=== PATIENT | female | born 1950 | race Hispanic/Latino ===

== ENCOUNTER 2019-12-23 13:43 | Inpatient (IN) | payer MEDICARE ==
[~2019-12-23] VITALS: Ht 157.5 cm; Wt 109.0 kg
[2019-12-23 14:29] LABS: BASOPHILS % (AUTO) 0.2 % (0.0-5.0); HEMATOCRIT 46.6 % (36-48); LYMPHOCYTES % (AUTO) 5.3 % (21.0-51.0); MEAN CORPUSCULAR HEMOGLOBIN 28.4 pg (27.0-33.0); MEAN CORPUSCULAR HGB CONC 33.9 g/dL (32.0-36.0); MEAN CORPUSCULAR VOLUME 83.7 fL (79-99); MONOCYTES % (AUTO) 4.8 % (3.0-13.0); NEUTROPHILS % (AUTO) 89.1 % (40.0-77.0); PLATELET COUNT (AUTO) 194 K/uL (130-400); RED BLOOD CELL COUNT(AUTO) 5.57 MIL/uL (4.00-5.50); RED CELL DISTRIBUTION WIDTH 14.4 % (11.0-15.5)
[2019-12-23] MEDS ORDERED: DEXAMETHASONE SOD PHOSPHATE 4 MG/ML 1ML VIAL ONE (14:39)
[2019-12-23] MEDS ORDERED: CEFTRIAXONE SODIUM 1 GM ONE (14:40)
[2019-12-23] MEDS ORDERED: AZITHROMYCIN 500MG+NS 250ML 250 ML IV ONE (14:40)
[2019-12-23] MEDS ORDERED: SODIUM CHLORIDE 0.9% 100 ML IV ONE (14:40)
[2019-12-23 14:48] LABS: CREATININE 1.1 mg/dL (0.5-1.5); POTASSIUM 4.5 mmol/L (3.5-5.1)
[2019-12-23 14:50] LABS: INR 0.98 (0.85-1.15); PARTIAL THROMBOPLASTIN TIME 26.8 SEC (26.3-35.5); PROTHROMBIN TIME 10.6 SEC (9.6-11.6)
[2019-12-23 14:55] LABS: ALBUMIN 3.1 g/dL (3.5-5.0); B-TYPE NATRIURETIC PEPTIDE 88 pg/mL (0-100); BILIRUBIN,TOTAL 0.5 mg/dL (0.2-1.0); TOTAL PROTEIN, SERUM 8.2 g/dL (6.0-8.3)
[2019-12-23] MEDS ORDERED: IOHEXOL 350 MG/ML 100ML INFUS..BTL IV ONE (15:40)
[2019-12-23] MEDS ORDERED: ERGOCALCIFEROL (VITAMIN D2) 50,000 UNIT CAPSULE PO ONE (16:15)
[2019-12-23] MEDS ORDERED: ACETAMINOPHEN 325 MG TAB PO PRN ×2 (16:15)
[2019-12-23] MEDS ORDERED: LACTULOSE 20 GM/30 ML UDCUP PO PRN (16:15)
[2019-12-23] MEDS ORDERED: ONDANSETRON HCL 4 MG/2 ML VIAL IV PRN (16:15)
[2019-12-23] MEDS ORDERED: HYDRALAZINE HCL 20 MG/ML VIAL IV PRN (16:15)
[2019-12-23] MEDS ORDERED: PHARMACY COMMUNICATION MISC SCH (16:30)
[2019-12-23] MEDS: FAMOTIDINE 20MG TAB 20 MG TAB PO SCH (21:00)
[2019-12-23] MEDS: DOXYCYCLINE HYCLATE 100 MG TABLET PO SCH (21:00)
[2019-12-23] MEDS: METHYLPREDNISOLONE SOD SUCC 40MG/ML 1ML IVP SCH (21:00)
[2019-12-24] MEDS: CEFTRIAXONE SODIUM 1 GM IVP SCH ×2 (04:15→15:22)
[2019-12-24] MEDS ORDERED: METHYLPREDNISOLONE SOD SUCC 40MG/ML 1ML ONE (05:35)
[2019-12-24] MEDS ORDERED: CEFTRIAXONE SODIUM 1 GM ONE (05:36)
[2019-12-24 06:28] LABS: BASOPHILS % (AUTO) 0.2 % (0.0-5.0); EOSINOPHILS % (AUTO) 0.1 % (0.0-8.0); HEMATOCRIT 47.1 % (36-48); LYMPHOCYTES % (AUTO) 7.5 % (21.0-51.0); MEAN CORPUSCULAR HEMOGLOBIN 28.1 pg (27.0-33.0); MEAN CORPUSCULAR HGB CONC 33.3 g/dL (32.0-36.0); MEAN CORPUSCULAR VOLUME 84.4 fL (79-99); NEUTROPHILS % (AUTO) 86.4 % (40.0-77.0); PLATELET COUNT (AUTO) 182 K/uL (130-400); RED BLOOD CELL COUNT(AUTO) 5.58 MIL/uL (4.00-5.50); RED CELL DISTRIBUTION WIDTH 14.5 % (11.0-15.5); WHITE BLOOD COUNT (AUTO) 14.4 K/uL (4.8-10.8)
[2019-12-24 06:29] VITALS: BP 168/78
[2019-12-24 07:07] LABS: ALBUMIN 2.8 g/dL (3.5-5.0); BILIRUBIN,TOTAL 0.4 mg/dL (0.2-1.0); CRP QUANTITATIVE 105.5 mg/L (0.00-9.0); POTASSIUM 4.2 mmol/L (3.5-5.1); TOTAL PROTEIN, SERUM 7.6 g/dL (6.0-8.3)
--- NOTE | 2019-12-24 07:22 | NUR ---
Patient received at 0600 the morning to room 202, accompanied by ED staff. Assessment and nursing data base completed. Patient is on 5L NC but stable, with no acute respiratory distress observed. Patient had $920 in galloway which security came in and took away to keep.
[2019-12-24 07:58] VITALS: BP 151/93
[2019-12-24] MEDS ORDERED: ENOXAPARIN SODIUM 40 MG/0.4 ML SYRINGE SQ SCH (09:00)
[2019-12-24] MEDS: DOXYCYCLINE HYCLATE 100 MG TABLET PO SCH ×2 (09:43→20:12)
[2019-12-24] MEDS: METHYLPREDNISOLONE SOD SUCC 40MG/ML 1ML IVP SCH (09:44)
[2019-12-24] MEDS: FAMOTIDINE 20MG TAB 20 MG TAB PO SCH ×2 (09:44→20:06)
[2019-12-24] MEDS: ASCORBIC ACID 500 MG TAB PO SCH (09:44)
[2019-12-24 10:01] LABS: HEMOGLOBIN A1C 6.2 % (4.0-6.0)
[2019-12-24] MEDS ORDERED: PHARMACY COMMUNICATION MISC SCH (11:00)
[2019-12-24 11:29] VITALS: BP 145/97
[2019-12-24] MEDS ORDERED: CARV25TA PO (11:56)
[2019-12-24] MEDS ORDERED: LEVO-170 PO (11:56)
[2019-12-24] MEDS ORDERED: NITR0.4T50 SL (11:56)
[2019-12-24] MEDS ORDERED: LISI-613 PO (11:56)
[2019-12-24] MEDS ORDERED: TRIH2TAB3 PO (11:56)
[2019-12-24] MEDS ORDERED: FURO-152 PO (11:56)
[2019-12-24] MEDS ORDERED: BACL10TA PO (11:56)
[2019-12-24] MEDS: ZINC SULFATE 220 CAPSULE PO SCH (12:20)
[2019-12-24] MEDS ORDERED: NITROGLYCERIN 0.4 MG SL TAB SL SCH (12:30)
[2019-12-24] MEDS: AMLODIPINE BESYLATE 5 MG TAB PO SCH (12:55)
[2019-12-24] MEDS: ENOXAPARIN SODIUM 60 MG/0.6 ML SQ SCH ×2 (12:55→20:06)
[2019-12-24] MEDS: LISINOPRIL 5 MG TABLET PO SCH ×2 (12:55→20:06)
[2019-12-24] MEDS ORDERED: REMDESIVIR (EUA) 520 200 MG in SODIUM CHLORIDE 0.9% 250 ML IV ONE (14:00)
[2019-12-24] MEDS ORDERED: COMPOUND IV REFRIGERATED 1 EACH IVSOLN MISC PRN (14:00)
[2019-12-24 15:28] VITALS: BP 174/97
--- NOTE | 2019-12-24 16:13 | NUR ---
INITIAL SW spoke to patient's son, London Eaton. Patient lives with her spouse. She has [facility] X 1-2 a week for PT. Patient also has [facility] with [facility] on MWF X 10 hrs a week. DME: [facility]. Patient needs help with ADL's and does not drive. PCP is Dr. Vinod Shaikh. Pharmacy is [facility] located on [address] in [place]. DCP is home. Addendum: 12/24/19 at 1614 by ROB ROJAS SS Amended: Links added.
[2019-12-24 19:40] VITALS: BP 157/89
[2019-12-24] MEDS: CARVEDILOL 12.5 MG TABLET PO SCH (20:12)
[2019-12-24 23:20] VITALS: BP 144/78
[2019-12-25] VITALS (7 sets, daily range): BP systolic 98–153; BP diastolic 44–86
[2019-12-25] MEDS: CEFTRIAXONE SODIUM 1 GM IVP SCH ×3 (04:01→20:24)
--- NOTE | 2019-12-25 05:59 | NUR ---
Patient slept on and off during this shift. POX between 92-97% in prone position on 100% NRB, 15% FI02. Pox drops in 80s when lying supine. Patient encouraged to maintain prone position. No acute respiratory distress at this time. Will continue to monitor. Following POC.
[2019-12-25] MEDS: PHARMACY COMMUNICATION MISC SCH (06:00)
[2019-12-25 06:01] LABS: BASOPHILS % (AUTO) 0.1 % (0.0-5.0); HEMATOCRIT 45.5 % (36-48); LYMPHOCYTES % (AUTO) 6.9 % (21.0-51.0); MEAN CORPUSCULAR HEMOGLOBIN 28.9 pg (27.0-33.0); MEAN CORPUSCULAR HGB CONC 33.8 g/dL (32.0-36.0); MEAN CORPUSCULAR VOLUME 85.4 fL (79-99); MONOCYTES % (AUTO) 4.6 % (3.0-13.0); NEUTROPHILS % (AUTO) 87.3 % (40.0-77.0); PLATELET COUNT (AUTO) 217 K/uL (130-400); RED BLOOD CELL COUNT(AUTO) 5.33 MIL/uL (4.00-5.50); RED CELL DISTRIBUTION WIDTH 14.5 % (11.0-15.5); WHITE BLOOD COUNT (AUTO) 13.8 K/uL (4.8-10.8)
[2019-12-25] MEDS: LEVOTHYROXINE 50 MCG TABLET PO SCH (06:11)
[2019-12-25 06:40] LABS: ALBUMIN 2.6 g/dL (3.5-5.0); BILIRUBIN,TOTAL 0.4 mg/dL (0.2-1.0); CREATININE 1.1 mg/dL (0.5-1.5); CRP QUANTITATIVE 131.2 mg/L (0.00-9.0); POTASSIUM 4.2 mmol/L (3.5-5.1); TOTAL PROTEIN, SERUM 7.5 g/dL (6.0-8.3)
--- NOTE | 2019-12-25 08:20 | NUR ---
ASSESSMENT ENCOUNTERED PT REPOSITIONING FROM PRONE TO LEFT SIDE, A&OX3, CALM COOPERATIVE WITH SOME C/O SOB. PT ON 70% NRB WITH SATS OF 88%, INCREASED TO 100% NRB WITH 6LNC HUMIDIFIED O2, O2 SATS 94%, PT STATES SHE FEELS BETTER WITH ADDITIONAL O2, PT IS ABLE TO TOLERATE FLUIDS AND MEDICATION WITH NO THROAT CLEARING OR COUGH BUT STATES THAT SHE HAS NOT HAD MUCH OF AN APPETITE. CALL LIGHT WITHIN REACH.
[2019-12-25] MEDS: CARVEDILOL 12.5 MG TABLET PO SCH ×3 (09:00→20:38)
[2019-12-25] MEDS: ENOXAPARIN SODIUM 60 MG/0.6 ML SQ SCH ×2 (10:12→20:18)
[2019-12-25] MEDS: LISINOPRIL 5 MG TABLET PO SCH ×2 (10:12→20:18)
[2019-12-25] MEDS: DOXYCYCLINE HYCLATE 100 MG TABLET PO SCH ×2 (10:12→20:17)
[2019-12-25] MEDS: AMLODIPINE BESYLATE 5 MG TAB PO SCH (10:12)
[2019-12-25] MEDS: ASCORBIC ACID 500 MG TAB PO SCH (10:12)
[2019-12-25] MEDS: FAMOTIDINE 20MG TAB 20 MG TAB PO SCH ×2 (10:12→20:17)
[2019-12-25] MEDS: ZINC SULFATE 220 CAPSULE PO SCH (10:13)
[2019-12-25] MEDS: DEXAMETHASONE SOD PHOSPHATE 4 MG/ML 1ML VIAL IVP SCH (10:13)
--- NOTE | 2019-12-25 11:01 | NUR ---
CHART CHECK COMPLETED. Pt IS A 69 Y.O. FEMALE ADMITTED SECONDARY TO COVID 19 PNEUMONIA, ACUTE RESPIRATORY DISTRESS. Pt HAS A PAST MEDICAL HISTORY SIGNIFICANT FOR HYPERTENSION, HYPOTHYROIDISM, ABDOMINAL HERNIA, APPENDECTOMY, SALPINGECTOMY. Pt CURRENTLY ON REGULAR TEXTURE,THIN LIQUID DIET (HEART HEALTHY). PLEASE REQUEST FORMAL SKILLED SPEECH/SWALLOW EVALUATION IF Pt PRESENTS WITH +S/S OF ASPIRATION SUCH COUGH RESPONSE, THROAT CLEAR, OR WET VOCAL QUALITY DURING P.O. Addendum: 12/25/19 at 1103 by ENOC PARK, [facility] Amended: Links added.
[2019-12-25] MEDS: REMDESIVIR (EUA) 520 100 MG in SODIUM CHLORIDE 0.9% 250 ML IV SCH (13:57)
[2019-12-25] MEDS ORDERED: PHARMACY COMMUNICATION MISC SCH (17:45)
[2019-12-26 03:14] VITALS: BP 146/87
[2019-12-26 04:28] LABS: BASOPHILS % (AUTO) 0.2 % (0.0-5.0); HEMATOCRIT 46.6 % (36-48); LYMPHOCYTES % (AUTO) 11.8 % (21.0-51.0); MEAN CORPUSCULAR HEMOGLOBIN 28.2 pg (27.0-33.0); MEAN CORPUSCULAR VOLUME 85.2 fL (79-99); MONOCYTES % (AUTO) 6.8 % (3.0-13.0); NEUTROPHILS % (AUTO) 79.7 % (40.0-77.0); PLATELET COUNT (AUTO) 223 K/uL (130-400); RED BLOOD CELL COUNT(AUTO) 5.47 MIL/uL (4.00-5.50); RED CELL DISTRIBUTION WIDTH 14.4 % (11.0-15.5); WHITE BLOOD COUNT (AUTO) 10.4 K/uL (4.8-10.8)
[2019-12-26 05:14] LABS: ALBUMIN 2.4 g/dL (3.5-5.0); BILIRUBIN,TOTAL 0.4 mg/dL (0.2-1.0); CRP QUANTITATIVE 110.8 mg/L (0.00-9.0); POTASSIUM 4.4 mmol/L (3.5-5.1); TOTAL PROTEIN, SERUM 7.4 g/dL (6.0-8.3)
--- NOTE | 2019-12-26 05:20 | NUR ---
Bed bath given with pt sitting up 90 degrees in bed. Pox maintained at 92-95% 100% NRB and 10L NC with humidifier. Cooperative with lying in prone position during the night. No acute respiratory distress at this time. Will continue to monitor.
[2019-12-26] MEDS: LEVOTHYROXINE 50 MCG TABLET PO SCH (05:57)
[2019-12-26] MEDS: PHARMACY COMMUNICATION MISC SCH (06:00)
[2019-12-26 08:00] VITALS: BP 157/83
[2019-12-26] MEDS: DEXAMETHASONE SOD PHOSPHATE 4 MG/ML 1ML VIAL IVP SCH (09:11)
[2019-12-26] MEDS: CEFTRIAXONE SODIUM 1 GM IVP SCH ×2 (09:12→20:33)
[2019-12-26] MEDS: ENOXAPARIN SODIUM 60 MG/0.6 ML SQ SCH ×2 (09:12→20:31)
[2019-12-26] MEDS: ZINC SULFATE 220 CAPSULE PO SCH (09:13)
[2019-12-26] MEDS: LISINOPRIL 5 MG TABLET PO SCH ×2 (09:13→20:32)
[2019-12-26] MEDS: FAMOTIDINE 20MG TAB 20 MG TAB PO SCH ×2 (09:13→20:31)
[2019-12-26] MEDS: DOXYCYCLINE HYCLATE 100 MG TABLET PO SCH ×2 (09:13→20:31)
[2019-12-26] MEDS: AMLODIPINE BESYLATE 5 MG TAB PO SCH (09:13)
[2019-12-26] MEDS: ASCORBIC ACID 500 MG TAB PO SCH (09:13)
[2019-12-26] MEDS: CARVEDILOL 12.5 MG TABLET PO SCH ×2 (09:13→20:33)
[2019-12-26 11:06] VITALS: BP 132/66
[2019-12-26] MEDS: REMDESIVIR (EUA) 520 100 MG in SODIUM CHLORIDE 0.9% 250 ML IV SCH (14:00)
[2019-12-26 16:00] VITALS: BP 127/62
[2019-12-26 20:18] VITALS: BP 123/81
[2019-12-26 23:49] VITALS: BP 134/89
[2019-12-27 04:13] VITALS: BP 143/81
[2019-12-27] MEDS: PHARMACY COMMUNICATION MISC SCH (06:00)
[2019-12-27] MEDS: LEVOTHYROXINE 50 MCG TABLET PO SCH (06:03)
[2019-12-27] MEDS: FAMOTIDINE 20MG TAB 20 MG TAB PO SCH ×2 (07:19→20:44)
[2019-12-27] MEDS: ASCORBIC ACID 500 MG TAB PO SCH (07:19)
[2019-12-27] MEDS: ZINC SULFATE 220 CAPSULE PO SCH (07:19)
[2019-12-27] MEDS: LISINOPRIL 5 MG TABLET PO SCH ×2 (07:19→20:56)
[2019-12-27] MEDS: DOXYCYCLINE HYCLATE 100 MG TABLET PO SCH ×2 (07:19→20:43)
[2019-12-27] MEDS: AMLODIPINE BESYLATE 5 MG TAB PO SCH (07:19)
[2019-12-27] MEDS: CEFTRIAXONE SODIUM 1 GM IVP SCH ×2 (07:19→20:45)
[2019-12-27] MEDS: DEXAMETHASONE SOD PHOSPHATE 4 MG/ML 1ML VIAL IVP SCH (07:20)
[2019-12-27] MEDS: ENOXAPARIN SODIUM 60 MG/0.6 ML SQ SCH ×2 (07:20→20:46)
[2019-12-27] MEDS ORDERED: ASPIRIN 81 MG EC TAB ONE (07:21)
[2019-12-27] MEDS: ASPIRIN 81MG TAB.CHEW PO SCH (07:22)
[2019-12-27 07:35] VITALS: BP 154/82
--- NOTE | 2019-12-27 07:45 | NUR ---
ASSESSMENT ENCOUNTERED PT IN PRONE POSITION, ASLEEP BUT AROUSEABLE, A&OX3, CALM COOPERATIVE WITH SOME C/O SOB. PT ON 100% NRB WITH 6LNC HUMIDIFIED O2, DOES NOT APPEAR TO BE IN ANY DISTRESS NOR ANY NEURO DEFICITS PRESENT. PT DENIES PAIN, DIZZINESS OR NAUSEA. PT IS ABLE TO REMOVE MASK BRIEFLY FOR MEALS, MEDICATIONS AND FLUIDS AND REPLACE TO MINIMIZE O2 DESATURATION, NO THROAT CLEARING OR COUGH. PT IS ABLE TO REPOSITION SELF FROM PRONE TO SIDE. CALL LIGHT WITHIN REACH.
[2019-12-27] MEDS: CARVEDILOL 12.5 MG TABLET PO SCH ×2 (09:00→20:44)
[2019-12-27 11:08] VITALS: BP 148/77
[2019-12-27 11:42] LABS: BASOPHILS % (AUTO) 0.1 % (0.0-5.0); HEMATOCRIT 51.2 % (36-48); LYMPHOCYTES % (AUTO) 9.1 % (21.0-51.0); MEAN CORPUSCULAR HEMOGLOBIN 28.4 pg (27.0-33.0); MEAN CORPUSCULAR HGB CONC 33.2 g/dL (32.0-36.0); MEAN CORPUSCULAR VOLUME 85.5 fL (79-99); MONOCYTES % (AUTO) 6.1 % (3.0-13.0); NEUTROPHILS % (AUTO) 83.2 % (40.0-77.0); PLATELET COUNT (AUTO) 234 K/uL (130-400); RED BLOOD CELL COUNT(AUTO) 5.99 MIL/uL (4.00-5.50); RED CELL DISTRIBUTION WIDTH 14.6 % (11.0-15.5); WHITE BLOOD COUNT (AUTO) 10.4 K/uL (4.8-10.8)
[2019-12-27 12:07] LABS: POTASSIUM 4.6 mmol/L (3.5-5.1)
[2019-12-27 12:12] LABS: ALBUMIN 2.5 g/dL (3.5-5.0); BILIRUBIN,TOTAL 0.4 mg/dL (0.2-1.0); CRP QUANTITATIVE 47.8 mg/L (0.00-9.0); TOTAL PROTEIN, SERUM 7.7 g/dL (6.0-8.3)
[2019-12-27] MEDS: REMDESIVIR (EUA) 520 100 MG in SODIUM CHLORIDE 0.9% 250 ML IV SCH (14:00)
[2019-12-27 16:00] VITALS: BP 126/67
--- NOTE | 2019-12-27 19:00 | NUR ---
ACCEPTED CARE ACCEPTED CARE REPORT RECEIVED USING SBAR FORMAT.
[2019-12-27 20:20] VITALS: BP 156/86
[2019-12-28 00:31] VITALS: BP 130/68
[2019-12-28 03:59] VITALS: BP 144/80
[2019-12-28 05:30] LABS: BASOPHILS % (AUTO) 0.3 % (0.0-5.0); EOSINOPHILS % (AUTO) 0.2 % (0.0-8.0); HEMATOCRIT 50.8 % (36-48); LYMPHOCYTES % (AUTO) 12.7 % (21.0-51.0); MEAN CORPUSCULAR HEMOGLOBIN 28.7 pg (27.0-33.0); MEAN CORPUSCULAR HGB CONC 33.1 g/dL (32.0-36.0); MEAN CORPUSCULAR VOLUME 86.7 fL (79-99); MONOCYTES % (AUTO) 7.5 % (3.0-13.0); NEUTROPHILS % (AUTO) 77.6 % (40.0-77.0); PLATELET COUNT (AUTO) 200 K/uL (130-400); RED BLOOD CELL COUNT(AUTO) 5.86 MIL/uL (4.00-5.50); RED CELL DISTRIBUTION WIDTH 14.8 % (11.0-15.5); WHITE BLOOD COUNT (AUTO) 12.3 K/uL (4.8-10.8)
[2019-12-28 05:50] LABS: ALBUMIN 2.4 g/dL (3.5-5.0); BILIRUBIN,TOTAL 0.5 mg/dL (0.2-1.0); CREATININE 0.8 mg/dL (0.5-1.5); CRP QUANTITATIVE 38.3 mg/L (0.00-9.0); POTASSIUM 4.7 mmol/L (3.5-5.1); TOTAL PROTEIN, SERUM 7.6 g/dL (6.0-8.3)
[2019-12-28] MEDS: PHARMACY COMMUNICATION MISC SCH (06:00)
[2019-12-28] MEDS: LEVOTHYROXINE 50 MCG TABLET PO SCH (06:27)
[2019-12-28 07:27] VITALS: BP 158/81
[2019-12-28] MEDS: DEXAMETHASONE SOD PHOSPHATE 4 MG/ML 1ML VIAL IVP SCH (09:11)
[2019-12-28] MEDS: CEFTRIAXONE SODIUM 1 GM IVP SCH ×2 (09:12→20:45)
[2019-12-28] MEDS: FAMOTIDINE 20MG TAB 20 MG TAB PO SCH ×2 (09:12→20:45)
[2019-12-28] MEDS: AMLODIPINE BESYLATE 5 MG TAB PO SCH (09:12)
[2019-12-28] MEDS: LISINOPRIL 5 MG TABLET PO SCH ×2 (09:12→20:45)
[2019-12-28] MEDS: ASCORBIC ACID 500 MG TAB PO SCH (09:13)
[2019-12-28] MEDS: ENOXAPARIN SODIUM 60 MG/0.6 ML SQ SCH ×3 (09:13→23:15)
[2019-12-28] MEDS: DOXYCYCLINE HYCLATE 100 MG TABLET PO SCH ×2 (09:13→20:45)
[2019-12-28] MEDS: ASPIRIN 81MG TAB.CHEW PO SCH (09:13)
--- NOTE | 2019-12-28 09:32 | NUR ---
hr 54, will notify md pt on carvedilol will hold for now and call md, will continue to monitor hr.
[2019-12-28 10:40] VITALS: BP 146/81
--- NOTE | 2019-12-28 11:35 | NUR ---
PT REMAINS IN PRONE POSITION SATING 97% ON HIGH FLOW AND NRB MASK.
--- NOTE | 2019-12-28 12:18 | NUR ---
DC PLAN GAVE PACKET FOR CDA. HAD NURSE EXPLAIN THAT I WOULD BE CALLING AND EXPLAINING INFO. CALLED PATIENT ROOM. ASKED TO CALL SON. SPOKE TO SON ASKED FOR CALL BACK AFTER HE TALKED TO BROTHER. SAID NO THEY WOULD WANT HER TO STAY IN THE HOSPITAL ONLY PLACE THEY WOULD BE OKAY TO GO TO [facility]. EXPLAINED SHE IS NOT READY SHE IS STILL ON NRB 15 L. LET NURSE KNOW. Addendum: 12/28/19 at 1220 by VIRGILIO JEFFERS RN CM Amended: Links added.
--- NOTE | 2019-12-28 12:21 | NUR ---
HR 66, CARVEDILOL GIVEN WILL MONITOR HR.
[2019-12-28] MEDS: CARVEDILOL 12.5 MG TABLET PO SCH ×2 (12:24→21:00)
[2019-12-28] MEDS: ZINC SULFATE 220 CAPSULE PO SCH (12:32)
[2019-12-28] MEDS: REMDESIVIR (EUA) 520 100 MG in SODIUM CHLORIDE 0.9% 250 ML IV SCH (14:39)
[2019-12-28 15:50] VITALS: BP 117/72
[2019-12-28 20:22] VITALS: BP 121/75
[2019-12-29 00:13] VITALS: BP 131/73
[2019-12-29 04:13] VITALS: BP 153/89
[2019-12-29] MEDS: PHARMACY COMMUNICATION MISC SCH (05:45)
[2019-12-29 05:53] LABS: BASOPHILS % (AUTO) 0.2 % (0.0-5.0); EOSINOPHILS % (AUTO) 0.3 % (0.0-8.0); HEMATOCRIT 50.7 % (36-48); LYMPHOCYTES % (AUTO) 11.5 % (21.0-51.0); MEAN CORPUSCULAR HEMOGLOBIN 28.7 pg (27.0-33.0); MEAN CORPUSCULAR HGB CONC 33.1 g/dL (32.0-36.0); MEAN CORPUSCULAR VOLUME 86.7 fL (79-99); MONOCYTES % (AUTO) 5.4 % (3.0-13.0); NEUTROPHILS % (AUTO) 80.6 % (40.0-77.0); PLATELET COUNT (AUTO) 209 K/uL (130-400); RED BLOOD CELL COUNT(AUTO) 5.85 MIL/uL (4.00-5.50); RED CELL DISTRIBUTION WIDTH 15.3 % (11.0-15.5)
[2019-12-29] MEDS: LEVOTHYROXINE 50 MCG TABLET PO SCH (06:34)
[2019-12-29 06:38] LABS: ALBUMIN 2.3 g/dL (3.5-5.0); BILIRUBIN,TOTAL 0.5 mg/dL (0.2-1.0); POTASSIUM 4.6 mmol/L (3.5-5.1); TOTAL PROTEIN, SERUM 7.3 g/dL (6.0-8.3)
[2019-12-29] MEDS: FAMOTIDINE 20MG TAB 20 MG TAB PO SCH ×2 (08:43→20:48)
[2019-12-29] MEDS: ZINC SULFATE 220 CAPSULE PO SCH (08:44)
[2019-12-29] MEDS: LISINOPRIL 5 MG TABLET PO SCH ×2 (08:44→20:48)
--- NOTE | 2019-12-29 08:45 | NUR ---
PT ON PRONE POSITION SATS; 97% ON HIGH FLOW 15L AND NRB MASK 15L. 100%.
[2019-12-29] MEDS: ASPIRIN 81MG TAB.CHEW PO SCH (08:46)
[2019-12-29] MEDS: DOXYCYCLINE HYCLATE 100 MG TABLET PO SCH ×2 (08:46→20:48)
[2019-12-29] MEDS: AMLODIPINE BESYLATE 5 MG TAB PO SCH (08:47)
[2019-12-29] MEDS: CARVEDILOL 12.5 MG TABLET PO SCH ×2 (08:47→21:00)
[2019-12-29] MEDS: ASCORBIC ACID 500 MG TAB PO SCH (08:47)
[2019-12-29] MEDS: ENOXAPARIN SODIUM 60 MG/0.6 ML SQ SCH (08:48)
[2019-12-29] MEDS: DEXAMETHASONE SOD PHOSPHATE 4 MG/ML 1ML VIAL IVP SCH (08:49)
[2019-12-29] MEDS: CEFTRIAXONE SODIUM 1 GM IVP SCH ×2 (08:49→20:48)
[2019-12-29 08:59] VITALS: BP_SYST 123; BP_SYST 148; BP_DIAS 59; BP_DIAS 62
[2019-12-29 12:00] VITALS: BP 138/80
[2019-12-29 16:00] VITALS: BP_SYST 101; BP_SYST 135; BP_DIAS 69; BP_DIAS 71
[2019-12-29 20:28] VITALS: BP 108/62
[2019-12-30] VITALS (7 sets, daily range): BP systolic 104–141; BP diastolic 51–95
[2019-12-30 04:23] LABS: BASOPHILS % (AUTO) 0.1 % (0.0-5.0); EOSINOPHILS % (AUTO) 0.1 % (0.0-8.0); HEMATOCRIT 51.2 % (36-48); LYMPHOCYTES % (AUTO) 8.8 % (21.0-51.0); MEAN CORPUSCULAR HEMOGLOBIN 28.1 pg (27.0-33.0); MEAN CORPUSCULAR HGB CONC 32.4 g/dL (32.0-36.0); MEAN CORPUSCULAR VOLUME 86.6 fL (79-99); MONOCYTES % (AUTO) 3.3 % (3.0-13.0); NEUTROPHILS % (AUTO) 85.9 % (40.0-77.0); PLATELET COUNT (AUTO) 182 K/uL (130-400); RED BLOOD CELL COUNT(AUTO) 5.91 MIL/uL (4.00-5.50); RED CELL DISTRIBUTION WIDTH 14.6 % (11.0-15.5); WHITE BLOOD COUNT (AUTO) 15.3 K/uL (4.8-10.8)
[2019-12-30 04:49] LABS: ALBUMIN 2.3 g/dL (3.5-5.0); BILIRUBIN,TOTAL 0.4 mg/dL (0.2-1.0); CRP QUANTITATIVE 136.5 mg/L (0.00-9.0); POTASSIUM 4.7 mmol/L (3.5-5.1); TOTAL PROTEIN, SERUM 7.4 g/dL (6.0-8.3)
[2019-12-30] MEDS: LEVOTHYROXINE 50 MCG TABLET PO SCH (05:59)
--- NOTE | 2019-12-30 08:12 | NUR ---
PT PRONE SATING 94% ON HIGH FLOW AND NRB MASK.
[2019-12-30] MEDS: CARVEDILOL 12.5 MG TABLET PO SCH ×2 (09:00→21:52)
[2019-12-30] MEDS: ASPIRIN 81MG TAB.CHEW PO SCH (10:08)
[2019-12-30] MEDS: FAMOTIDINE 20MG TAB 20 MG TAB PO SCH ×2 (10:09→21:52)
[2019-12-30] MEDS: ASCORBIC ACID 500 MG TAB PO SCH (10:10)
[2019-12-30] MEDS: LISINOPRIL 5 MG TABLET PO SCH ×2 (10:11→21:52)
[2019-12-30] MEDS: DEXAMETHASONE SOD PHOSPHATE 4 MG/ML 1ML VIAL IVP SCH (10:11)
[2019-12-30] MEDS: AMLODIPINE BESYLATE 5 MG TAB PO SCH (10:11)
[2019-12-30] MEDS: ENOXAPARIN SODIUM 60 MG/0.6 ML SQ SCH (10:12)
[2019-12-30] MEDS: ZINC SULFATE 220 CAPSULE PO SCH (10:12)
[2019-12-31 03:41] VITALS: BP 117/71
[2019-12-31 05:17] LABS: BASOPHILS % (AUTO) 0.2 % (0.0-5.0); EOSINOPHILS % (AUTO) 0.1 % (0.0-8.0); LYMPHOCYTES % (AUTO) 7.8 % (21.0-51.0); MEAN CORPUSCULAR HGB CONC 32.4 g/dL (32.0-36.0); MEAN CORPUSCULAR VOLUME 86.6 fL (79-99); MONOCYTES % (AUTO) 3.4 % (3.0-13.0); NEUTROPHILS % (AUTO) 87.2 % (40.0-77.0); PLATELET COUNT (AUTO) 209 K/uL (130-400); RED BLOOD CELL COUNT(AUTO) 5.89 MIL/uL (4.00-5.50); RED CELL DISTRIBUTION WIDTH 14.8 % (11.0-15.5); WHITE BLOOD COUNT (AUTO) 17.6 K/uL (4.8-10.8)
[2019-12-31 05:34] LABS: CRP QUANTITATIVE 141.5 mg/L (0.00-9.0); POTASSIUM 4.8 mmol/L (3.5-5.1)
[2019-12-31] MEDS: LEVOTHYROXINE 50 MCG TABLET PO SCH (06:43)
[2019-12-31 08:37] VITALS: BP 143/69
[2019-12-31] MEDS: ASPIRIN 81MG TAB.CHEW PO SCH (09:11)
[2019-12-31] MEDS: FAMOTIDINE 20MG TAB 20 MG TAB PO SCH ×2 (09:11→21:50)
[2019-12-31] MEDS: ASCORBIC ACID 500 MG TAB PO SCH (09:11)
[2019-12-31] MEDS: AMLODIPINE BESYLATE 5 MG TAB PO SCH (09:12)
[2019-12-31] MEDS: LISINOPRIL 5 MG TABLET PO SCH ×2 (09:12→21:50)
[2019-12-31] MEDS: DEXAMETHASONE SOD PHOSPHATE 4 MG/ML 1ML VIAL IVP SCH (09:13)
[2019-12-31] MEDS: CARVEDILOL 12.5 MG TABLET PO SCH ×2 (09:13→21:50)
[2019-12-31] MEDS: ENOXAPARIN SODIUM 60 MG/0.6 ML SQ SCH (09:15)
[2019-12-31 12:00] VITALS: BP 132/74
[2019-12-31] MEDS: ZINC SULFATE 220 CAPSULE PO SCH (12:00)
[2019-12-31 16:00] VITALS: BP 130/47
[2019-12-31 20:22] VITALS: BP 125/77
[2020-01-01 00:10] VITALS: BP 117/74
[2020-01-01 04:11] VITALS: BP 117/71
[2020-01-01] MEDS: LEVOTHYROXINE 50 MCG TABLET PO SCH (06:53)
[2020-01-01 07:33] LABS: CRP QUANTITATIVE 93.1 mg/L (0.00-9.0)
[2020-01-01] MEDS: DEXAMETHASONE SOD PHOSPHATE 4 MG/ML 1ML VIAL IVP SCH (07:41)
[2020-01-01] MEDS: ASCORBIC ACID 500 MG TAB PO SCH (07:41)
[2020-01-01] MEDS: ZINC SULFATE 220 CAPSULE PO SCH (07:41)
[2020-01-01] MEDS: FAMOTIDINE 20MG TAB 20 MG TAB PO SCH ×2 (07:42→21:36)
[2020-01-01] MEDS: LISINOPRIL 5 MG TABLET PO SCH ×2 (07:42→22:04)
[2020-01-01] MEDS: ASPIRIN 81MG TAB.CHEW PO SCH (07:43)
[2020-01-01] MEDS: ENOXAPARIN SODIUM 60 MG/0.6 ML SQ SCH (07:43)
[2020-01-01] MEDS: CARVEDILOL 12.5 MG TABLET PO SCH ×2 (07:43→22:05)
[2020-01-01] MEDS: AMLODIPINE BESYLATE 5 MG TAB PO SCH (07:43)
--- NOTE | 2020-01-01 08:00 | NUR ---
ASSESSMENT PT IS AAOX3 DENIES CP DENIES SOB DENIES NV, LAYING PRONE IN BED. AM MEDS GIVEN. PATIENT IS O2 VIA NONREBREATHER 15LPM, O2 SAT VIA BEDSIDE OXIMITER READS HIGH 93%. CALL LIGHT WITHIN REACH.
[2020-01-01 08:51] VITALS: BP 127/90
--- NOTE | 2020-01-01 11:13 | NUR ---
RDSCREEN - LOS X 7 Pt admitted with COVID-19 PNA, ARF. Pt tolerating Heart Healthy diet order with no report of GI distress. Fair PO intake at 50%. Pt with Obesity Class III. Elevated BG levels, Na 146, BUN 31, Alb 2.3. Zinc, Vit C in place. NRB and Nasal cannula in place. Recommend 60gm CCD Recommend Glucerna BID Recommend 1700-2000mL Free water for hydration RD to continue to monitor. Please notify as additional nutrition concerns arise. Thank you. Addendum: 01/01/20 at [address] Amended: Links added. Addendum: 01/01/20 at [address] RDSCREEN - LOS X 9 Pt admitted with COVID-19 PNA, ARF. Pt tolerating Heart Healthy diet order with no report of GI distress. Fair PO intake at 50%. Pt with Obesity Class III. Elevated BG levels, Na 146, BUN 31, Alb 2.3. Zinc, Vit C in place. NRB and Nasal cannula in place. Recommend 60gm CCD Recommend Glucerna BID Recommend 1700-2000mL Free water for hydration RD to continue to monitor. Please notify as additional nutrition concerns arise. Thank you.
[2020-01-01 11:28] VITALS: BP 118/86
[2020-01-01 16:31] VITALS: BP 118/62
--- NOTE | 2020-01-01 18:20 | NUR ---
STATUS REMAINS PRONE, CURRENTLY SATING LOW/MID 90S ON NONREBREATHER
[2020-01-01 20:00] VITALS: BP 137/87
[2020-01-02 04:00] VITALS: BP 123/82
[2020-01-02] MEDS: LEVOTHYROXINE 50 MCG TABLET PO SCH (06:20)
[2020-01-02 08:00] VITALS: BP 129/86
[2020-01-02] MEDS: DEXAMETHASONE SOD PHOSPHATE 4 MG/ML 1ML VIAL IVP SCH (08:26)
[2020-01-02] MEDS: FAMOTIDINE 20MG TAB 20 MG TAB PO SCH ×2 (08:26→20:32)
[2020-01-02] MEDS: AMLODIPINE BESYLATE 5 MG TAB PO SCH (08:26)
[2020-01-02] MEDS: ASCORBIC ACID 500 MG TAB PO SCH (08:27)
[2020-01-02] MEDS: LISINOPRIL 5 MG TABLET PO SCH ×2 (08:27→20:32)
[2020-01-02] MEDS: ASPIRIN 81MG TAB.CHEW PO SCH (08:27)
[2020-01-02] MEDS: ZINC SULFATE 220 CAPSULE PO SCH (08:29)
[2020-01-02] MEDS: ENOXAPARIN SODIUM 60 MG/0.6 ML SQ SCH (08:29)
[2020-01-02 08:38] LABS: BASOPHILS % (AUTO) 0.2 % (0.0-5.0); EOSINOPHILS % (AUTO) 0.2 % (0.0-8.0); HEMATOCRIT 52.5 % (36-48); LYMPHOCYTES % (AUTO) 11.5 % (21.0-51.0); MEAN CORPUSCULAR HEMOGLOBIN 28.3 pg (27.0-33.0); MEAN CORPUSCULAR HGB CONC 32.2 g/dL (32.0-36.0); MEAN CORPUSCULAR VOLUME 87.9 fL (79-99); MONOCYTES % (AUTO) 5.4 % (3.0-13.0); PLATELET COUNT (AUTO) 221 K/uL (130-400); RED BLOOD CELL COUNT(AUTO) 5.97 MIL/uL (4.00-5.50); RED CELL DISTRIBUTION WIDTH 15.4 % (11.0-15.5); WHITE BLOOD COUNT (AUTO) 16.2 K/uL (4.8-10.8)
[2020-01-02] MEDS: CARVEDILOL 12.5 MG TABLET PO SCH ×2 (08:50→20:32)
[2020-01-02 09:57] LABS: CRP QUANTITATIVE 43.6 mg/L (0.00-9.0)
[2020-01-02 12:00] VITALS: BP 120/72
[2020-01-02 15:51] VITALS: BP 129/78
[2020-01-02] MEDS: INSULIN HUMULIN R 100 UNIT/ML 3ML SQ SCH ×2 (16:30→20:33)
[2020-01-02 20:00] VITALS: BP 148/94
[2020-01-03] VITALS (7 sets, daily range): BP systolic 104–148; BP diastolic 58–79
[2020-01-03 04:52] LABS: BASOPHILS % (AUTO) 0.1 % (0.0-5.0); EOSINOPHILS % (AUTO) 0.1 % (0.0-8.0); HEMATOCRIT 52.2 % (36-48); MEAN CORPUSCULAR HEMOGLOBIN 28.5 pg (27.0-33.0); MEAN CORPUSCULAR VOLUME 89.1 fL (79-99); MONOCYTES % (AUTO) 6.6 % (3.0-13.0); NEUTROPHILS % (AUTO) 78.5 % (40.0-77.0); PLATELET COUNT (AUTO) 215 K/uL (130-400); RED BLOOD CELL COUNT(AUTO) 5.86 MIL/uL (4.00-5.50); RED CELL DISTRIBUTION WIDTH 15.6 % (11.0-15.5)
[2020-01-03 05:28] LABS: ALBUMIN 2.2 g/dL (3.5-5.0); BILIRUBIN,TOTAL 0.4 mg/dL (0.2-1.0); CRP QUANTITATIVE 27.6 mg/L (0.00-9.0); POTASSIUM 5.1 mmol/L (3.5-5.1); TOTAL PROTEIN, SERUM 7.3 g/dL (6.0-8.3)
[2020-01-03] MEDS: LEVOTHYROXINE 50 MCG TABLET PO SCH (06:32)
[2020-01-03] MEDS: INSULIN HUMULIN R 100 UNIT/ML 3ML SQ SCH ×4 (06:33→20:38)
[2020-01-03] MEDS: LISINOPRIL 5 MG TABLET PO SCH ×2 (09:28→20:36)
[2020-01-03] MEDS: ASCORBIC ACID 500 MG TAB PO SCH (09:28)
[2020-01-03] MEDS: DEXAMETHASONE SOD PHOSPHATE 4 MG/ML 1ML VIAL IVP SCH (09:28)
[2020-01-03] MEDS: AMLODIPINE BESYLATE 5 MG TAB PO SCH (09:28)
[2020-01-03] MEDS: CARVEDILOL 12.5 MG TABLET PO SCH ×2 (09:28→20:36)
[2020-01-03] MEDS: FAMOTIDINE 20MG TAB 20 MG TAB PO SCH ×2 (09:28→20:36)
[2020-01-03] MEDS: ASPIRIN 81MG TAB.CHEW PO SCH (09:28)
[2020-01-03] MEDS: ENOXAPARIN SODIUM 60 MG/0.6 ML SQ SCH (09:29)
[2020-01-03] MEDS: ZINC SULFATE 220 CAPSULE PO SCH (12:00)
[2020-01-04 03:58] VITALS: BP 121/73
[2020-01-04 05:20] LABS: BASOPHILS % (AUTO) 0.2 % (0.0-5.0); EOSINOPHILS % (AUTO) 0.2 % (0.0-8.0); HEMATOCRIT 54.3 % (36-48); LYMPHOCYTES % (AUTO) 15.2 % (21.0-51.0); MEAN CORPUSCULAR HEMOGLOBIN 28.2 pg (27.0-33.0); MEAN CORPUSCULAR HGB CONC 31.9 g/dL (32.0-36.0); MEAN CORPUSCULAR VOLUME 88.4 fL (79-99); MONOCYTES % (AUTO) 6.5 % (3.0-13.0); NEUTROPHILS % (AUTO) 77.2 % (40.0-77.0); PLATELET COUNT (AUTO) 230 K/uL (130-400); RED BLOOD CELL COUNT(AUTO) 6.14 MIL/uL (4.00-5.50); RED CELL DISTRIBUTION WIDTH 16.9 % (11.0-15.5); WHITE BLOOD COUNT (AUTO) 11.6 K/uL (4.8-10.8)
[2020-01-04 06:00] LABS: ALBUMIN 2.3 g/dL (3.5-5.0); BILIRUBIN,TOTAL 0.4 mg/dL (0.2-1.0); CREATININE 1.1 mg/dL (0.5-1.5); CRP QUANTITATIVE 20.9 mg/L (0.00-9.0); POTASSIUM 5.3 mmol/L (3.5-5.1); TOTAL PROTEIN, SERUM 7.4 g/dL (6.0-8.3)
[2020-01-04] MEDS: INSULIN HUMULIN R 100 UNIT/ML 3ML SQ SCH ×4 (06:30→22:18)
[2020-01-04] MEDS: LEVOTHYROXINE 50 MCG TABLET PO SCH (06:30)
[2020-01-04 08:00] VITALS: BP 132/88
[2020-01-04] MEDS: DEXAMETHASONE SOD PHOSPHATE 4 MG/ML 1ML VIAL IVP SCH (08:45)
[2020-01-04] MEDS: FAMOTIDINE 20MG TAB 20 MG TAB PO SCH ×2 (08:46→21:56)
[2020-01-04] MEDS: AMLODIPINE BESYLATE 5 MG TAB PO SCH (08:46)
[2020-01-04] MEDS: ASPIRIN 81MG TAB.CHEW PO SCH (08:46)
[2020-01-04] MEDS: LISINOPRIL 5 MG TABLET PO SCH ×2 (08:46→21:55)
[2020-01-04] MEDS: ENOXAPARIN SODIUM 60 MG/0.6 ML SQ SCH (08:47)
[2020-01-04] MEDS: ASCORBIC ACID 500 MG TAB PO SCH (08:47)
[2020-01-04] MEDS: CARVEDILOL 12.5 MG TABLET PO SCH ×2 (08:47→21:56)
[2020-01-04] MEDS ORDERED: LACTULOSE 20 GM/30 ML UDCUP PO SCH (11:15)
[2020-01-04] MEDS: ZINC SULFATE 220 CAPSULE PO SCH (11:47)
[2020-01-04 12:00] VITALS: BP 116/67
[2020-01-04 16:00] VITALS: BP 116/80
[2020-01-04 18:39] LABS: ABG BASE EXCESS -10.2 mmol/L (-2.0-3.0); ABG OXYGEN SATURATION 83.9 % (95.0-99.0); ABG PCO2 37 mmHg (32-45)
--- NOTE | 2020-01-04 18:57 | NUR ---
1825 Patient found unresponsive rapid response called patient had a pulse appeared to have removed high flow nasal cannula bipap was placed on patient and blood gas was drawn. Dr. Mcneil was called and informed of result. ABG reveals some acidosis. Patients vitals are stable however patient is showing tachypnea in the 30s. Respiratory failure Dr. Mcneil aware and is calling family to see if they would like to proceed with placing patient on life-support.
[2020-01-04 19:00] VITALS: BP 123/82
--- NOTE | 2020-01-04 19:26 | NUR ---
made son aware of patients condition. Family was called via video call and son spoke with mom and he opted to hold off on intubation. Dr. Mcneil explained risk benefit of intubation. Son asked to be called by second shift supervisor if any changes in patients condition.
[2020-01-04 23:00] VITALS: BP 105/69
--- NOTE | 2020-01-05 02:00 | NUR ---
CALLED TO PRONOUNCE LEFTY REZA ON THIS DAY 01/05/20 AT 0200 . NO APICAL PULSE NOTED BY AUSCULTATION OR RESPIRATIONS. NO BILATERAL PAPILLARY LIGHT REFLEXES NOTED. SON SHIN REZA CALLED AND NOTIFIED. JOSE CRUZ CONTRERAS [employer]ORY LABORER CALLED AND NOTIFIED. DR. MOISES MENDEZ TO SIGN CERTIFICATE. SON DECLINED AUTOPSY.
--- NOTE | 2020-01-05 02:35 | NUR ---
At 0135 telemetry called nursing station that pt was in abnormal cardiac rhythm. Pt found non-responsive and pulseless. Earlier in shift pt was made DNR, form in paper chart. Pt pronounced by nursing lubrication supervisor at 0200. Provider PIPE FITTER SUPERVISOR MAINTENANCE Sarah informed of pt . Pt's son London called by RN, son to call back once home decided by family.
== END 2020-01-05 02:00 | disposition expired | DRG 177 ==
LOC: EDH 13:43 → EDHIP 16:07 → 2AH 12-24 05:58
PROVIDERS: ADMIT Hospitalist; ATTEND Hospitalist
PROC: XW13325 Transfusion of Convalescent Plasma (Nonautologous) into Peripheral Vein, Percutaneous Approach, New Technology Group 5 (ICD-10-PCS; principal; 2019-12-24)
PROC: XW13325 Transfusion of Convalescent Plasma (Nonautologous) into Peripheral Vein, Percutaneous Approach, New Technology Group 5 (ICD-10-PCS; 2019-12-24)
PROC: XW033E5 Introduction of Remdesivir Anti-infective into Peripheral Vein, Percutaneous Approach, New Technology Group 5 (ICD-10-PCS; 2019-12-24)
PROC: XW033E5 Introduction of Remdesivir Anti-infective into Peripheral Vein, Percutaneous Approach, New Technology Group 5 (ICD-10-PCS; 2019-12-28)
DX: U07.1 COVID-19 (principal); J96.01 Acute respiratory failure with hypoxia; J12.89 Other viral pneumonia; E87.0 Hyperosmolality and hypernatremia; I10 Essential (primary) hypertension; E03.9 Hypothyroidism, unspecified; K46.9 Unspecified abdominal hernia without obstruction or gangrene; E87.8 Other disorders of electrolyte and fluid balance, not elsewhere classified; I70.0 Atherosclerosis of aorta; Z66 Do not resuscitate; Z90.49 Acquired absence of other specified parts of digestive tract; Z90.81 Acquired absence of spleen
CPT/HCPCS: 36415; 36430; 36600; 71045; 71275; 80048; 80053; 82435; 82550; 82728; 82803; 82947; 82948; 83036; 83605; 83615; 83880; 84132; 84145; 84295; 84484; 85018; 85025; 85378; 85610; 85730; 86140; 86900; 86901; 86927; 87426; 93005; 94660; 99291; G0378; J0456; J0696; J1100; J1650; J1815; J2920; J7050; Q9967; U0003